=== PATIENT | male | born 1940 | race Caucasian/White ===

== ENCOUNTER 2023-12-12 17:34 | Outpatient (CLI) | payer MEDICARE ==
--- NOTE | 2023-12-12 19:21 | Ultrasound Report ---
PROCEDURE: Duplex Ext Veins Right INDICATIONS: CONTUSION OF RIGHT LOWER LEG,CELLULITIS TECHNIQUE: Real-time imaging, as well as color and pulse Doppler interrogation, were performed of the lower extr emity deep veins from the inguinal ligament to the popliteal fossa. Attempted visualization of the ca lf veins was performed. COMPARISON: None. FINDINGS: The deep veins are normally compressible, and free of intraluminal thrombus. Color and pu lse Doppler demonstrate normal phasic intraluminal flow. There is normal augmentation response to di stal compression maneuver. Complex fluid collection, possible hematoma at the area of interest measuring 15.3 x 5.1 cm. Sterilit y indeterminate. IMPRESSION: No deep venous thrombosis of the visualized lower extremity. Complex fluid collection, possible hematoma at the area of interest measuring 15.3 x 5.1 cm. Sterilit y indeterminate. Reviewed by: Jed Erickson MD on 12/12/2023 7:20 PM PDT Approved by: Jed Erickson MD on 12/12/2023 7:20 PM PDT Station ID: [id number]
== END 2023-12-12 17:35 | disposition home or self-care (01) ==
LOC: DI 17:34
PROVIDERS: ATTEND Physician Assistant Medical
DX: L03.115 Cellulitis of right lower limb (principal); S80.11XS Contusion of right lower leg, sequela; S84.80 Injury of other nerves at lower leg level